=== PATIENT | female | born 1995 | race Caucasian/White ===

== ENCOUNTER 2017-10-02 02:53 | Emergency (ER) | payer OTHER ==
[2017-10-02] MEDS ORDERED: Acetaminophen 325 MG Tab PO ONE (02:57)
--- NOTE | 2017-10-02 02:58 | EDM.PDOC ---
ED HPI GENERAL MEDICAL PROBLEM - General Stated Complaint: FALL Time Seen by Provider: 10/02/17 02:54 - History of Present Illness INITIAL COMMENTS - FREE TEXT/NARRATIVE: HISTORY AND PHYSICAL: History of present illness: The patient is a healthy 22-year-old female who presents after she slipped and fell down 2 stairs twisting her right ankle and hearing a "pop/crack". The patient did not hit her head or pass out or blackout but has severe pain at the lateral aspect of her right ankle and along the lateral aspect of her right leg. She has no right hip pain and no other extremity complaints and no lower back pain neck pain or head pain. She does not take any medications prior to coming here. Patient states that she missed her period and is unsure if she is . No abdominal complaints Review of systems: As per history of present illness and below otherwise all systems reviewed and negative. Past medical history: As per history of present illness and as reviewed below otherwise noncontributory. Surgical history: As per history of present illness and as reviewed below otherwise noncontributory. Social history: No reported history of drug or alcohol abuse. Family history: As per history of present illness and as reviewed below otherwise noncontributory. Physical exam: Gen.: Well-developed well-nourished female is very dramatic on evaluation pushing my hand away and trying to hit me. Vital signs are noted by me HEENT: Atraumatic, normocephalic, negative for conjunctival pallor or scleral icterus, mucous membranes moist, throat clear, neck supple, nontender, trachea midline. Lungs: Clear to auscultation, breath sounds equal bilaterally, chest nontender. Heart: S1S2, regular rate and rhythm no overt murmurs Abdomen: Soft, nondistended, nontender. NABS Pelvis: Stable nontender. No lateral hip tenderness Genitourinary: Deferred. Rectal: Deferred. Extremities: Atraumatic with full range of motion of all extremities with the exception of the right lower leg. There is gross soft tissue swelling at the lateral malleolus without any visible evidence of malalignment and no distal foot tenderness or defects nor any proximal knee thigh or hip tenderness or defects. There is some slight lateral tenderness at the tib-fib area without any defects deformities or ecchymosis.r, negative for cords or calf pain. Neurovascular unremarkable. Neuro: Awake, alert, oriented. Cranial nerves II through XII unremarkable. Cerebellum unremarkable. Motor and sensory unremarkable throughout. Exam nonfocal. Diagnostics: X-ray right ankle and right tib-fib, UCG is negative Therapeutics: Tylenol ice pack ortho boot and crutches Impression: Right ankle sprain Definitive disposition and diagnosis as appropriate pending reevaluation and review of above. right ankle Pain Score (Numeric/FACES): 10 - Related Data Allergies Allergy/AdvReac Type Severity Reaction Status Date / Time ceftriaxone [From Rocephin] Allergy Hives Verified 10/02/17 03:21 Latex, Natural Rubber Allergy Rash Verified 10/02/17 03:21 Home Meds: Home Meds . [No Known Home Meds] 10/02/17 [History] ED ROS GENERAL - Review of Systems Review Of Systems: ROS reveals no pertinent complaints other than HPI. ED EXAM, GENERAL - Physical Exam Exam: See Below (See dictation) Course - Vital Signs Last Recorded V/S: Last Vital Signs Temp 36.9 C 10/02/17 02:53 Pulse 118 H 10/02/17 02:53 Resp 20 10/02/17 02:53 BP 139/102 H 10/02/17 02:53 Pulse Ox 99 10/02/17 02:53 - Orders/Labs/Meds Orders: Active Orders 24 hr Category Date Time Status Ankle Min 3V Rt [CR] Stat Exams 10/02/17 02:57 Taken Tibia Fibula Rt [CR] Stat Exams 10/02/17 02:58 Taken DME for Discharge [COMM] Stat Oth 10/02/17 03:35 Ordered Labs: Laboratory Tests 10/02/17 Range/Units 03:30 Urine HCG, Qual NEGATIVE (NEGATIVE) Meds: Medications Discontinued Medications Generic Name Dose Route Start Last Admin Trade Name Freq PRN Reason Stop Dose Admin Acetaminophen 650 mg 10/02/17 02:57 10/02/17 03:17 Tylenol PO 10/02/17 02:58 650 mg NOW ONE Administration Departure - Departure Time of Disposition: 03:45 Disposition: Home, Self-Care 01 Condition: Good Clinical Impression: Right ankle sprain Qualifiers: Encounter type: initial encounter Involved ligament of ankle: unspecified ligament Qualified Code(s): S93.401A - Sprain of unspecified ligament of right ankle, initial encounter - Discharge Information Referrals: PCP,None [Primary Care Provider] - Additional Instructions: The following information is given to patients seen in the emergency department who are being discharged to home. This information is to outline your options for follow-up care. We provide all patients seen in our emergency department with a follow-up referral. The need for follow-up, as well as the timing and circumstances, are variable depending upon the specifics of your emergency department visit. If you don't have a primary care physician on staff, we will provide you with a referral. We always advise you to contact your personal physician following an emergency department visit to inform them of the circumstance of the visit and for follow-up with them and/or the need for any referrals to a consulting specialist. The emergency department will also refer you to a specialist when appropriate. This referral assures that you have the opportunity for followup care with a specialist. All of these measure are taken in an effort to provide you with optimal care, which includes your followup. Under all circumstances we always encourage you to contact your private physician who remains a resource for coordinating your care. When calling for followup care, please make the office aware that this follow-up is from your recent emergency room visit. If for any reason you are refused follow-up, please contact the [facility] emergency department at and ask to speak to the emergency department charge nurse. [facility] Specialty Care--Orthopedic clinic Professional [address] [address] Ice and elevate the area and do not weight-bear, use crutches for the next 5-7 days. Wear ortho boot at all times and loosen or remove at sleep times. Please call and follow-up in our orthopedic clinic using resources above and return to ER as needed and as discussed. You will be given Insty Meds, Tylenol with Codeine, for pain management and you can also take [id number] ibuprofen - My Orders Last 24 Hours: My Active Orders 10/02/17 02:57 Ankle Min 3V Rt [CR] Stat 10/02/17 02:58 Tibia Fibula Rt [CR] Stat 10/02/17 03:35 DME for Discharge [COMM] Stat - Assessment/Plan Last 24 Hours: My Active Orders 10/02/17 02:57 Ankle Min 3V Rt [CR] Stat 10/02/17 02:58 Tibia Fibula Rt [CR] Stat 10/02/17 03:35 DME for Discharge [COMM] Stat
--- NOTE | 2017-10-02 11:06 | CR ---
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 Site : 1995 Study: XRay Extremity Right Ankle [id number]/14/2018 3:20:50 AM Ordering Physician: Doctor Ray Final Report: Indication: Fall with lateral pain Technique: Three views right ankle Comparison: None Findings: Bones: Alignment is normal. No fractures or bone lesions. Joint spaces: Unremarkable. Soft tissues: Lateral soft tissue swelling. Impression: Soft tissue swelling around the lateral ankle joint. No fracture or subluxation. Dictated by Jannet Kelsey MD @ Oct 02 2017 3:23AM (Electronic Signature) Report Signed by Proxy. ROSHNI
--- NOTE | 2017-10-02 11:07 | CR ---
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 Site : 1995 Study: XRay Extremity Right Tib-fib [id number]/14/2018 3:21:22 AM Ordering Physician: Doctor Ray Final Report: Indication: Right lateral ankle pain Technique: Two views right tibia and fibula Comparison: None Findings: Bones: Alignment is normal. No fractures or bone lesions. Joint spaces: Unremarkable. Soft tissues: Soft tissue swelling along the lateral ankle joint. Impression: Soft tissue swelling along the lateral ankle joint. No fracture or subluxation. Dictated by Jannet Kelsey MD @ Oct 02 2017 3:24AM (Electronic Signature) Report Signed by Proxy. ROSHNI
== END 2017-10-02 03:55 | disposition home or self-care (01) ==
LOC: MW.ED 02:53
DX: S93.401A Sprain of unspecified ligament of right ankle, initial encounter (principal); Z91.040 Latex allergy status; Z88.1 Allergy status to other antibiotic agents; W10.9XXA Fall (on) (from) unspecified stairs and steps, initial encounter
CPT/HCPCS: 73590; 73610; 81025; 99283; A9270

== ENCOUNTER 2017-11-05 22:35 | Emergency (ER) | payer OTHER ==
--- NOTE | 2017-11-05 23:09 | EDM.PDOC ---
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 Review of systems: As per history of present illness and below otherwise all systems reviewed and negative. Past medical history: As per history of present illness and as reviewed below otherwise noncontributory. Surgical history: As per history of present illness and as reviewed below otherwise noncontributory. Social history: No reported history of drug or alcohol abuse. Family history: As per history of present illness and as reviewed below otherwise noncontributory. Physical exam: HEENT: Atraumatic, normocephalic, pupils reactive, negative for conjunctival pallor or scleral icterus, mucous membranes moist, throat clear, neck supple, nontender, trachea midline. Lungs: Clear to auscultation, breath sounds equal bilaterally, chest nontender. Heart: S1S2, regular, negative for clicks, rubs, or JVD. Abdomen: Soft, nondistended, nontender. Negative for masses or hepatosplenomegaly. Negative for costovertebral tenderness. Pelvis: Stable nontender. Genitourinary: Deferred. Rectal: Deferred. Extremities: Atraumatic, negative for cords or calf pain. Neurovascular unremarkable. Neuro: Awake, alert, oriented. Cranial nerves II through XII unremarkable. Cerebellum unremarkable. Motor and sensory unremarkable throughout. Exam nonfocal. Diagnostics: CBC ABO Rh quantitative beta UA first trimester Therapeutics: None Impression: 1 threatened miscarriage Definitive disposition and diagnosis as appropriate pending reevaluation and review of above. lower back Pain Score (Numeric/FACES): 6 - Related Data Allergies Allergy/AdvReac Type Severity Reaction Status Date / Time ceftriaxone [From Rocephin] Allergy Hives Verified 11/05/17 22:49 Latex, Natural Rubber Allergy Rash Verified 11/05/17 22:49 shrimp Allergy Swelling Verified 11/05/17 22:49 Home Meds: Home Meds . 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: Musculoskeletal History: Reports: None Neurological History: Reports: None Psychiatric History: Reports: Anxiety Endocrine/Metabolic History: Reports: None Hematologic History: Reports: None Immunologic History: Reports: None Oncologic (Cancer) History: Reports: None Dermatologic History: Reports: None - Infectious Disease History Infectious Disease History: Reports: None - Past Surgical History Head Surgeries/Procedures: Reports: None Female Surgical History: Reports: Section, Other (See Below) Other Female Surgeries/Procedures: right side ovary removal Social & Family History - Family History Family Medical History: Noncontributory - Tobacco Use Smoking Status *Q: Never Smoker - Caffeine Use Caffeine Use: Reports: None - Recreational Drug Use Recreational Drug Use: No ED ROS GENERAL - Review of Systems Review Of Systems: ROS reveals no pertinent complaints other than HPI. ED EXAM, GENERAL - Physical Exam Exam: See Below (See dictation) Course - Vital Signs Last Recorded V/S: Last Vital Signs Temp 36.4 C 11/05/17 22:50 Pulse 96 11/05/17 22:50 Resp 18 11/05/17 22:50 BP 137/87 11/05/17 22:50 Pulse Ox 98 11/05/17 22:50 - Orders/Labs/Meds Orders: Active Orders 24 hr Category Date Time Status OB 1st Tri Sgl 1st Gest [US] Stat Exams 11/05/17 23:05 Taken HCG QUALITATIVE,URINE [URCHEM] Stat Lab 11/05/17 22:48 Ordered HCG QUANTITATIVE,SERUM [CHEM] Stat Lab 11/05/17 23:20 Received UA W/MICROSCOPIC [URIN] Stat Lab 11/05/17 22:48 Ordered Labs: Laboratory Tests 11/05/17 11/05/17 11/05/17 Range/Units 22:48 22:48 23:20 WBC 9.95 (4.0-11.0) K/uL RBC 4.76 (4.30-5.90) M/uL Hgb 12.1 (12.0-16.0) g/dL Hct 36.7 (36.0-46.0) % MCV 77.1 L (80.0-98.0) fL MCH 25.4 L (27.0-32.0) pg MCHC 33.0 (31.0-37.0) g/dL RDW Std Deviation 44.3 (28.0-62.0) fl RDW Coeff of [place] 16 H (11.0-15.0) % Plt Count 186 (150-400) K/uL MPV 11.40 (7.40-12.00) fL Neut % (Auto) 85.5 H (48.0-80.0) % Lymph % (Auto) 10.2 L (16.0-40.0) % [place] % (Auto) 3.9 (0.0-15.0) % Eos % (Auto) 0.1 (0.0-7.0) % Baso % (Auto) 0.3 (0.0-1.5) % Neut # (Auto) 8.5 H (1.4-5.7) K/uL Lymph # (Auto) 1.0 (0.6-2.4) K/uL Whitley # (Auto) 0.4 (0.0-0.8) K/uL Eos # (Auto) 0.0 (0.0-0.7) K/uL Baso # (Auto) 0.0 (0.0-0.1) K/uL Nucleated RBC % 0.0 /100WBC Nucleated RBCs # 0 K/uL Urine Color YELLOW Urine Appearance CLEAR Urine pH 6.0 (5.0-8.0) Ur Specific [place] 1.025 (1.001-1.035) Urine Protein NEGATIVE (NEGATIVE) mg/dL Urine Glucose (UA) NEGATIVE (NEGATIVE) mg/dL Urine Ketones 15 H (NEGATIVE) mg/dL Urine Occult Blood TRACE-INTACT (NEGATIVE) Urine Nitrite NEGATIVE (NEGATIVE) Urine Bilirubin NEGATIVE (NEGATIVE) Urine Urobilinogen 0.2 (<2.0) EU/dL Ur Leukocyte Esterase NEGATIVE (NEGATIVE) Urine RBC NONE SEEN (0-2/HPF) Urine WBC 0-1 (0-5/HPF) Ur Epithelial Cells RARE (NONE-FEW) Urine Bacteria 1+ H (NEGATIVE) Urine Mucus LIGHT (NONE-MOD) Urine HCG, Qual POSITIVE (NEGATIVE) Blood Type 11/05/17 Range/Units 23:20 WBC (4.0-11.0) K/uL RBC (4.30-5.90) M/uL Hgb (12.0-16.0) g/dL Hct (36.0-46.0) % MCV (80.0-98.0) fL MCH (27.0-32.0) pg MCHC (31.0-37.0) g/dL RDW Std Deviation (28.0-62.0) fl RDW Coeff of [place] (11.0-15.0) % Plt Count (150-400) K/uL MPV (7.40-12.00) fL Neut % (Auto) (48.0-80.0) % Lymph % (Auto) (16.0-40.0) % Whitley % (Auto) (0.0-15.0) % Eos % (Auto) (0.0-7.0) % Baso % (Auto) (0.0-1.5) % Neut # (Auto) (1.4-5.7) K/uL Lymph # (Auto) (0.6-2.4) K/uL Whitley # (Auto) (0.0-0.8) K/uL Eos # (Auto) (0.0-0.7) K/uL Baso # (Auto) (0.0-0.1) K/uL Nucleated RBC % /100WBC Nucleated RBCs # K/uL Urine Color Urine Appearance Urine pH (5.0-8.0) Ur Specific [place] (1.001-1.035) Urine Protein (NEGATIVE) mg/dL Urine Glucose (UA) (NEGATIVE) mg/dL Urine Ketones (NEGATIVE) mg/dL Urine Occult Blood (NEGATIVE) Urine Nitrite (NEGATIVE) Urine Bilirubin (NEGATIVE) Urine Urobilinogen (<2.0) EU/dL Ur Leukocyte Esterase (NEGATIVE) Urine RBC (0-2/HPF) Urine WBC (0-5/HPF) Ur Epithelial Cells (NONE-FEW) Urine Bacteria (NEGATIVE) Urine Mucus (NONE-MOD) Urine HCG, Qual (NEGATIVE) Blood Type O POSITIVE Departure - Departure Time of Disposition: 00:36 Disposition: Home, Self-Care 01 Condition: Good Clinical Impression: Threatened - Discharge Information Referrals: PCP,None [Primary Care Provider] - Forms: ED Department Discharge Additional Instructions: The following information is given to patients seen in the emergency department who are being discharged to home. This information is to outline your options for follow-up care. We provide all patients seen in our emergency department with a follow-up referral. The need for follow-up, as well as the timing and circumstances, are variable depending upon the specifics of your emergency department visit. If you don't have a primary care physician on staff, we will provide you with a referral. We always advise you to contact your personal physician following an emergency department visit to inform them of the circumstance of the visit and for follow-up with them and/or the need for any referrals to a consulting specialist. The emergency department will also refer you to a specialist when appropriate. This referral assures that you have the opportunity for followup care with a specialist. All of these measure are taken in an effort to provide you with optimal care, which includes your followup. Under all circumstances we always encourage you to contact your private physician who remains a resource for coordinating your care. When calling for followup care, please make the office aware that this follow-up is from your recent emergency room visit. If for any reason you are refused follow-up, please contact the [facility] emergency department at and asked to speak to the emergency department charge nurse. 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
--- NOTE | 2017-11-06 11:20 | US ---
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 Site : 1995 Study: US OB Pelvis [id number]/2017 12:07:57 AM Ordering Physician: Franco Perez Final Report: INDICATION: Cramping and spotting, status post right oophorectomy TECHNIQUE: Ultrasound OB pelvis transvaginal. Real-time stephens-scale and color Doppler imaging of the pelvis was performed. COMPARISON: None FINDINGS: Sonographic imaging demonstrates a single living intrauterine gestation. The embryo demonstrates a regular cardiac rate measuring 131 beats per minute. The embryo`s crown rump length measurement of 0.65 cm cm corresponds to a gestational age of 6 weeks 4 days with a sonographic due date of June 23, 2018. There is a normal appearing yolk sac. There are no gross abnormalities noted within the embryo at this early state of development. The placenta has not yet developed. The gestational sac has a normal appearance. There is a small focus of decreased echogenicity surrounding the gestational sac. The amount of fluid within the sac appears appropriate for gestational age. The cervix is closed. The myometrium appears normal. The left ovary of normal size. A complex left ovarian cyst is noted, likely representing a corpus luteum cyst. The right ovary is surgically absent. There are no suspicious fluid collections noted in the cul-de-sac. IMPRESSION: 1. Single viable intrauterine . Likely small perigestational hemorrhage. 2. Surgically absent right ovary. Dictated by Jannet Kelsey MD @ Nov 06 2017 12:28AM (Electronic Signature) Report Signed by Proxy. ROSHNI
== END 2017-11-06 00:45 | disposition home or self-care (01) ==
LOC: MW.ED 22:35
DX: O20.0 Threatened abortion (principal); Z3A.01 Less than 8 weeks gestation of pregnancy; Z91.040 Latex allergy status; Z88.1 Allergy status to other antibiotic agents
CPT/HCPCS: 36415; 76801; 76801-26; 81001; 81025; 84702; 85025; 86900; 86901; 99283; 99284-25